=== PATIENT | female | born 1995 | race Caucasian/White ===

== ENCOUNTER 2016-07-04 16:36 | Outpatient (CLI) | payer OTHER ==
[~2016-07-04] VITALS: Ht 162.6 cm; Wt 96.4 kg
[~2016-07-04 16:36] MED LIST: ACET500C5 PO; D-ME473S18 PO
[2016-07-04 16:40] VITALS: Ht 162.6 cm; Wt 96.4 kg
[2016-07-04 16:41] VITALS: RESP 19
--- NOTE | 2016-07-04 17:01 | RADRPT ---
PROCEDURE: US OB biophysical profile. CLINICAL INDICATION: decreased movements TECHNIQUE: Multiple sonographic images of the pelvis were obtained. The images were reviewed on a PACS workstation. COMPARISON: No prior studies are available for comparison. FINDINGS: There is a single viable intrauterine gestation. Cardiac activity is present with 137 beats per min matt. There is a vertex presentation. The placenta is fundal. There is no evidence of placental abruption. There is a normal amount of amniotic fluid with an CONNIE = 12.3 cm. Biophysical profile: movement 2/2 tone 2/2. breathing 2/2 CONNIE 2/2 Total 10/23 RPTAT: AA . IMPRESSION: Normal biophysical profile. . .Michoacano Almanzar MD, MD Date Time Electronically viewed and signed by .Michoacano Almanzar MD, MD on 07/04/2016 17:01 .S/
--- NOTE | 2016-07-04 17:23 | QN ---
Documentation Comment 20 y/o female here for decreased FM at 37 weeks NST R BPP 10/23 will follow as outpatient URBAN HUNT MD Jul 04, 2016 17:23
--- NOTE | 2016-07-04 18:04 | TRIAGE ---
OB Triage Datetime Report Generated by CPN: 07/04/2016 18:04 Datetime: 07/04/2016 16:54 Assessment Type: Triage EGA: 37.1 Maternal Assessment Level of Consciousness: Fully Conscious DTR's/Clonus: DTRs 2+; No Clonus Headache: Denies Blurred Vision: No Respiratory Effort: Unlabored; Regular Rhythm; Equal Expansion Breath Sounds, Left: Clear and Equal Breath Sounds, Right: Clear and Equal Nausea/Vomiting: Denies RUQ Epigastric Pain: Denies Lower Extremities Edema: None Degree: None Upper Extremities Edema: None Degree: None Facial Edema: None Fall Risk Assessment History of Falling: (0) No Secondary Diagnosis: (0) No Ambulatory Aid: (0) Bedrest/Nurse Assist IV Therapy: (0) No Gait: (0) Normal/Bedrest/Immobile Mental Status: (0) Oriented to Own Ability Fall Score: 0 Fall Risk Score Definition: No Risk: No action required Datetime: 07/04/2016 16:52 Maternal Assessment Level of Consciousness: Fully Conscious DTR's/Clonus: DTRs 1+ Headache: Denies Blurred Vision: No Respiratory Effort: Unlabored Breath Sounds, Left: Clear and Equal Breath Sounds, Right: Clear and Equal Nausea/Vomiting: Denies RUQ Epigastric Pain: Denies Facial Edema: None Labor Evaluation Frequency: NONE Monitor Mode: External Resting Tone [place]: Relaxed Heart Rate FHR Baseline Rate: 135 Monitor Mode: External US Variability: Moderate 6-25 bpm Accelerations: 15X15 Decelerations: None Category: Category I Pain Assessment Pain Scale: 0 Pain Presence: None/Denies Pain Type: N/A Pain Goal: 3 Datetime: 07/04/2016 16:35 Time of Arrival: 07/04/2016 16:35 Arrived By: Ambulatory Arrived From: Home Chief Complaint: DFM Movement: Present Contractions: Denies/Absent Rupture of Membranes: Denies Vaginal Bleeding: None Vaginal Discharge: Denies Recent Sexual Intercouse: Denies Abdominal Trauma: Not Applicable Patient Complaints: Other Additional Patient Complaints: NONE Time Provider Notified: 07/04/2016 17:00 Provider Notified: JOCELYN Initial Plan: JOHN
== END 2016-07-04 17:23 | disposition home or self-care (01) ==
LOC: OBT 16:36 → L-D 16:37 → OBT 17:23
PROVIDERS: ATTEND Obstetrics & Gynecology
DX: O36.8130 Decreased fetal movements, third trimester, not applicable or unspecified (principal); Z3A.37 37 weeks gestation of pregnancy
CPT/HCPCS: 76818; Z7500; G0463

== ENCOUNTER 2016-07-25 17:52 | Inpatient (IN) | payer OTHER ==
[~2016-07-25] VITALS: Ht 162.6 cm; Wt 98.2 kg
[2016-07-25 18:05] VITALS: Ht 162.6 cm; Wt 98.2 kg
[2016-07-25] MEDS ORDERED: PREN-47 PO (18:17)
--- NOTE | 2016-07-25 18:46 | RADRPT ---
PROCEDURE: OB ultrasound for biophysical profile CLINICAL INDICATION: Biophysical profile. . TECHNIQUE: Multiple sonographic images of the pelvis were obtained. Transabdominal views are obta ined. COMPARISON: 07/06/2016 FINDINGS: Single intrauterine gestation. Presentation: Cephalic. Placenta: Fundal No evidence of placental abruption. No evidence of placenta previa. breathing movement = 2/2 tone = 2/2 motion = 2/2 CONNIE = 2/2 CONNIE = 6.7 cm, previously 9.6 cm heart rate: 132 beats per minute IMPRESSION: Single intrauterine gestation. Biophysical profile 10/23 Low normal amniotic fluid index. RPTAT: AADD .Nestor Smith MD, MD Date Time Electronically viewed and signed by .Nestor Smith MD, on 07/25/2016 18:45 .B/
[2016-07-25] MEDS ORDERED: CARBOPROST 250 MCG INJ IM PRN (19:00)
[2016-07-25] MEDS ORDERED: MINERAL OIL LIGHT 10 ML VIAL TOP PRN (19:00)
[2016-07-25] MEDS ORDERED: OXYTOCIN 30 UNITS/LR 500 ML IV SCH ×3 (19:00→21:00)
[2016-07-25] MEDS ORDERED: MISOPROSTOL 200 MCG TAB PR PRN (19:00)
[2016-07-25] MEDS ORDERED: METHYLERGONOVINE 0.2 MG INJ IM PRN (19:00)
[2016-07-25] MEDS ORDERED: IBUPROFEN 600 MG TAB PO PRN (19:00)
[2016-07-25] MEDS ORDERED: LACTATED RINGER'S 1,000 ML IV PRN (19:00)
[2016-07-25] MEDS ORDERED: BUTORPHANOL 2 MG INJ IV PRN (19:00)
[2016-07-25] MEDS ORDERED: DINOPROSTONE 10 MG VAG SUPP VAG ONE (19:00)
[2016-07-25] MEDS ORDERED: LIDOCAINE 1% (MPF) 30 ML INJ INJ PRN (19:00)
[2016-07-25] MEDS ORDERED: OXYTOCIN 30 UNITS/LR 500 ML IV PRN (19:00)
--- NOTE | 2016-07-25 19:01 | TRIAGE ---
OB Triage Datetime Report Generated by CPN: 07/25/2016 19:01 Datetime: 07/25/2016 18:43 Labor Evaluation Frequency: x1 contraction noted in last hour Monitor Mode: External Duration (sec)2399: 80 Quality: Mild Pattern: Normal: <= 5 Contractions in 10 Minutes Resting Tone [place]: Relaxed Heart Rate FHR Baseline Rate: 130 Monitor Mode: External US FHR Baseline Changes: No Baseline Change Variability: Moderate 6-25 bpm Accelerations: 15X15 Decelerations: None Category: Category I Pain Assessment Pain Presence: None/Denies Datetime: 07/25/2016 18:10 Assessment Type: Triage Maternal Assessment Level of Consciousness: Fully Conscious DTR's/Clonus: DTRs 2+; No Clonus Headache: Denies Blurred Vision: No Respiratory Effort: Unlabored; Regular Rhythm; Equal Expansion Breath Sounds, Left: Clear and Equal Breath Sounds, Right: Clear and Equal Nausea/Vomiting: Denies RUQ Epigastric Pain: Denies Lower Extremities Edema: Bilateral Lower Extremities Degree: 1+ Upper Extremities Edema: Bilateral Upper Extremities Degree: 1+ Facial Edema: None Temperature Route: Oral Fall Risk Assessment History of Falling: (0) No Secondary Diagnosis: (0) No Ambulatory Aid: (0) Bedrest/Nurse Assist IV Therapy: (0) No Gait: (0) Normal/Bedrest/Immobile Mental Status: (0) Oriented to Own Ability Fall Score: 0 Fall Risk Score Definition: No Risk: No action required Datetime: 07/25/2016 18:06 Time of Arrival: 07/25/2016 17:50 EGA: 40.1 Arrived By: Ambulatory Arrived From: Dr. Bess Chief Complaint: Follow up for decreased movement, Movement: Present Contractions: Denies/Absent Rupture of Membranes: Denies Vaginal Bleeding: None Vaginal Discharge: Denies Recent Sexual Intercouse: Denies Abdominal Trauma: Not Applicable Patient Complaints: None Time Provider Notified: 07/25/2016 18:53 Provider Notified: Marvin Initial Plan: NST, BPP/CONNIE Datetime: 07/25/2016 18:02 Stage of : OB Triage Datetime: 07/04/2016 16:54 EGA: 37.1 Fall Score: 0 Fall Risk Score Definition: No Risk: No action required
[2016-07-25 19:54] LABS: ADD SCAN DIFF NO
[2016-07-25 19:56] LABS: BASOPHIL # 0.1 10^3/ul (0.0-0.1); BASOPHILS % 0.3 % (0.0-2.0); EOSINOPHILS # 0.1 10^3/ul (0.0-0.5); EOSINOPHILS % 0.3 % (0.0-7.0); HEMATOCRIT 34.6 % (37.0-47.0); HEMOGLOBIN 11.1 g/dl (12.0-16.0); LYMPHOCYTES # 1.5 10^3/ul (0.8-2.9); LYMPHOCYTES % 10.1 % (18.0-55.0); MEAN CORPUSCULAR HEMOGLOBIN 27.1 pg (29.0-33.0); MEAN CORPUSCULAR HGB CONC 32.1 g/dl (32.0-37.0); MEAN CORPUSCULAR VOLUME 84.4 fl (72.0-104.0); MEAN PLATELET VOLUME 10.9 fl (7.4-10.4); MONOCYTE # 0.9 10^3/ul (0.3-0.9); NEUTROPHIL # 12.5 10^3/ul (1.6-7.5); NEUTROPHILS % 81.9 % (30.0-74.0); PLATELET COUNT 313 10^3/UL (140-415); RED CELL DISTRIBUTION WIDTH 15.2 % (11.5-14.5); WHITE BLOOD COUNT 15.3 10^3/ul (4.8-10.8)
[2016-07-25 20:18] LABS: INR 0.93; PROTIME 12.5 Sec (12.2-14.2)
[2016-07-25 20:19] LABS: PARTIAL THROMBOPLASTIN TIME 27.2 Sec (25.0-35.0)
[2016-07-25] MEDS: LACTATED RINGER'S 1,000 ML IV SCH (21:12)
[2016-07-26] MEDS: LACTATED RINGER'S 1,000 ML IV SCH ×2 (02:19→08:08)
[2016-07-26] MEDS ORDERED: FENTAnyl 2MCG/ML-ROPIV 0.2% 100 ML ONE (05:11)
[2016-07-26] MEDS ORDERED: ZOLPIDEM 5 MG TAB PO PRN ×2 (06:00→18:30)
[2016-07-26] MEDS ORDERED: ONDANSETRON 4 MG INJ IV PRN (06:00)
[2016-07-26] MEDS ORDERED: NALOXONE (0.4 MG/ML) INJ IV PRN (06:00)
[2016-07-26] MEDS ORDERED: DIPHENHYDRAMINE 50 MG INJ IV PRN (06:00)
[2016-07-26] MEDS ORDERED: HYDROmorphONE 1 MG/ML SYG IV PRN ×2 (06:00)
[2016-07-26] MEDS: FENTAnyl 2MCG/ML-ROPIV 0.2% 100 ML BAG EPI SCH ×2 (08:08→10:19)
[2016-07-26 08:41] VITALS: BP 129/93; PULSE 95
[2016-07-26] MEDS: ACETAMINOPHEN 325 MG TAB PO PRN ×2 (12:21→16:08)
[2016-07-26] MEDS ORDERED: GENTAMICIN 120 MG/NS (PMX) 100 ML IVPB SCH (12:30)
[2016-07-26] MEDS ORDERED: AMPICILLIN 2 GM/NS (PMX) 100 ML IV ONE (12:30)
[2016-07-26] MEDS ORDERED: AMPICILLIN 1 GM/NS (PMX) 50 ML IV SCH (16:30)
--- NOTE | 2016-07-26 17:18 | LDN ---
Date/Time of Note Date/Time of Note DATE: 07/26/16 TIME: 17:14 Delivery Summary of a viable over intact perineum Weeks of Gestation 40+ Placenta Delivered: Spontaneously, Intact & Complete Meconium: none Episiotomy: No Laceration repair: 2nd degree perineal laceration was repaired in layers(done by De. Gastelum) Anesthesia type: Epidural Estimated blood loss: 300 Sponge & Needle done & correct: Yes All needle counts correct: Yes Any foreign bodies felt in the: No Problems: Infant Delivery Information Sex Infant Sex: male Apgars 1 Minute: 7 5 Minute: 8 Suctioning Nose & mouth suctioned at luis: Yes Delee suction performed: No Umbilical Cord Umbilical cord with: 3 Vessels Cord presentations: no nuchal cord Nuchal cord present X: 350 Cord Blood was obtained: Yes Mother & Baby Disposition Disposition Mom & Baby to Maternity; Good: No Mom transferred to: Other (maternity) Baby to NICU: Yes (for retractions) URBAN HUNT MD July 26, 2016 17:18
--- NOTE | 2016-07-26 17:36 | HP ---
Date/Time of Note Date/Time of Note DATE: 07/26/16 TIME: 17:33 OB - History Hx of Present Free Text/Dictation admitted for induction at 40 + weeks because of low CONNIE Last Menstrual Period: Oct 05, 2015 Estimated Due Date: July 24, 2016 : 1 Para: 0 Care: Good Care Ultrasounds: Normal mid trimester US Obstetrical Complications: None Medical Complications: None Past Family/Social History * Past Medical, Surgical, Family and Obstetric Histories reviewed from chart. Blood Type: O+ Rubella: immune RPR/VDRL: Negative GBS Status: Negative HBsAG: Negative OB Admission Exam Vital Signs Vital Signs Vital Signs Date Time Temp Pulse Resp B/P Pulse Ox O2 Delivery O2 Flow Rate FiO2 07/26/16 08:41 98.9 95 129/93 Physical Exam HEENT: WNL Heart: Rhythm Normal Lungs: Clear, Equal Abdomen: WNL Extremities: Normal Reflexes: Normal Cervical Dilatation: 3cm Effacement: 50% Station: -3 Membranes: Intact Heart Rate: 120's Accelerations: Accelerations Present Decelerations: No Decelerations Varibility: Moderate Contractions on Admission: None Last 72 hours Lab Results CBC & BMP 07/25/16 19:30 OB Assessment/Plan Reason for admission: induction of labor Other Assessment: term gestation decreased amniotic fluid Induction Method: per Pitocin Protocol URBAN HUNT MD July 26, 2016 17:36
[2016-07-26 18:30] VITALS: BP 138/77
[2016-07-26] MEDS ORDERED: MISOPROSTOL 200 MCG TAB PR PRN (18:30)
[2016-07-26] MEDS ORDERED: METHYLERGONOVINE 0.2 MG INJ IM PRN (18:30)
[2016-07-26] MEDS ORDERED: LANOLIN 7 GM TUBE TOP PRN (18:30)
[2016-07-26] MEDS ORDERED: ACETAMINOPHEN/CODEINE #3 TAB PO PRN ×2 (18:30)
[2016-07-26] MEDS ORDERED: WITCH HAZEL/GLYCERIN PAD PR PRN (18:30)
[2016-07-26] MEDS ORDERED: BENZOCAINE 20% 56 ML SPRAY TOP PRN (18:30)
[2016-07-26] MEDS ORDERED: DIBUCAINE 1% 30 GM OINT PR PRN (18:30)
[2016-07-26] MEDS ORDERED: OXYTOCIN 30 UNITS/LR 500 ML IV PRN (18:30)
[2016-07-26] MEDS ORDERED: CARBOPROST 250 MCG INJ IM PRN (18:30)
[2016-07-26] MEDS: AMPICILLIN/SULB 3 GM/NS (PMX) 100 ML IVPB SCH (19:40)
[2016-07-26 19:45] VITALS: BP 129/73
[2016-07-26] MEDS ORDERED: GENTAMICIN 80 MG/NS (PMX) 50 ML IVPB SCH (21:00)
[2016-07-26] MEDS: MAGNESIUM HYDROXIDE 30ML CUP PO SCH (21:01)
[2016-07-26] MEDS: SENNA/DOCUSATE NA (8.6MG/50MG) TAB PO SCH (21:01)
[2016-07-26] MEDS: LACTATED RINGER'S 1,000 ML IV* SCH (21:01)
[2016-07-26] MEDS: IBUPROFEN 600 MG TAB PO SCH (23:43)
[2016-07-26 23:58] VITALS: BP 125/62
[2016-07-27] MEDS: AMPICILLIN/SULB 3 GM/NS (PMX) 100 ML IVPB SCH ×4 (01:24→18:16)
[2016-07-27] MEDS: LACTATED RINGER'S 1,000 ML IV* SCH ×3 (02:18→19:08)
[2016-07-27 04:00] VITALS: BP 108/53
[2016-07-27] MEDS: IBUPROFEN 600 MG TAB PO SCH ×3 (05:56→18:16)
[2016-07-27 08:05] LABS: ADD SCAN DIFF NO
[2016-07-27 08:20] LABS: ABNORMAL IP MESSAGE 1; BASOPHILS % 0.2 % (0.0-2.0); EOSINOPHILS # 0.1 10^3/ul (0.0-0.5); EOSINOPHILS % 0.3 % (0.0-7.0); HEMATOCRIT 24.1 % (37.0-47.0); HEMOGLOBIN 7.6 g/dl (12.0-16.0); LYMPHOCYTES # 2.8 10^3/ul (0.8-2.9); LYMPHOCYTES % 11.7 % (18.0-55.0); MEAN CORPUSCULAR HEMOGLOBIN 27.5 pg (29.0-33.0); MEAN CORPUSCULAR HGB CONC 31.5 g/dl (32.0-37.0); MEAN CORPUSCULAR VOLUME 87.3 fl (72.0-104.0); MEAN PLATELET VOLUME 10.9 fl (7.4-10.4); MONOCYTE # 1.7 10^3/ul (0.3-0.9); MONOCYTES % 6.8 % (0.0-13.0); NEUTROPHIL # 19.3 10^3/ul (1.6-7.5); NEUTROPHILS % 79.7 % (30.0-74.0); PLATELET COUNT 215 10^3/UL (140-415); RED BLOOD COUNT 2.76 10^6/ul (4.20-5.40); RED CELL DISTRIBUTION WIDTH 15.8 % (11.5-14.5); WHITE BLOOD COUNT 24.3 10^3/ul (4.8-10.8)
[2016-07-27 08:30] VITALS: BP 122/74
[2016-07-27] MEDS: SENNA/DOCUSATE NA (8.6MG/50MG) TAB PO SCH ×2 (08:58→21:49)
[2016-07-27] MEDS: MAGNESIUM HYDROXIDE 30ML CUP PO SCH ×2 (08:59→21:49)
[2016-07-27 12:20] VITALS: BP 121/84
--- NOTE | 2016-07-27 15:35 | DS ---
Date/Time of Note Date/Time of Note home next day DATE: 07/27/16 TIME: 15:33 Obstetrical Discharge Record Final Diagnosis Final Diagnosis: Term delivered Other Final Diagnosis S/P vaginal delivery Vaginal Delivery Obstetrical Delivery: Spontaneous, Laceration, Repaired Complications Augmentation: Yes Condition on Discharge Physical Assessment Last Vitals: see nurses note Voiding: Yes Bowel Movement: Yes Breast: Soft, non-tender, Filling Fundus: Firm Abdomen and Incision: soft BS+ Episiotomy: NA perineum:healing Calf Tenderness: No Patient Condition: Good URBAN HUNT MD July 27, 2016 15:35
--- NOTE | 2016-07-27 15:36 | PD.PPDC ---
INTERNAL GRINDER SET UP OPERATOR Discharge Instruction Provider Information Physician Information 20 y/o female had vaginal delivery Diagnosis Final Diagnosis: S/P vaginal delivery Condition Patient Condition: Good Diet Diet: Resume Regular Diet Activity/Restrictions Activity: Normal Activity May Shower Restrictions: Nothing in the Vagina Return to Work or School: Sep 10, 2016 Follow-up Follow-up with Physician: 4, Week/Weeks (in clinic) Return to clinic for OB Instructions: Breast Tenderness Depression URBAN HUNT MD July 27, 2016 15:36
[2016-07-27] MEDS ORDERED: IBUP-1542 PO (15:37)
[2016-07-27 16:30] VITALS: BP 121/84
[2016-07-27 20:00] VITALS: BP 140/77
[2016-07-28] MEDS: IBUPROFEN 600 MG TAB PO SCH ×4 (00:06→17:13)
[2016-07-28] MEDS: AMPICILLIN/SULB 3 GM/NS (PMX) 100 ML IVPB SCH ×4 (00:06→17:13)
[2016-07-28] MEDS: LACTATED RINGER'S 1,000 ML IV* SCH ×2 (02:18→10:08)
[2016-07-28 04:51] VITALS: BP 123/75
[2016-07-28 07:58] LABS: ADD SCAN DIFF NO
[2016-07-28 08:02] LABS: BASOPHIL # 0.1 10^3/ul (0.0-0.1); BASOPHILS % 0.3 % (0.0-2.0); EOSINOPHILS # 0.2 10^3/ul (0.0-0.5); EOSINOPHILS % 1.3 % (0.0-7.0); HEMATOCRIT 24.4 % (37.0-47.0); HEMOGLOBIN 7.7 g/dl (12.0-16.0); LYMPHOCYTES # 2.8 10^3/ul (0.8-2.9); LYMPHOCYTES % 15.1 % (18.0-55.0); MEAN CORPUSCULAR HEMOGLOBIN 27.8 pg (29.0-33.0); MEAN CORPUSCULAR HGB CONC 31.6 g/dl (32.0-37.0); MEAN CORPUSCULAR VOLUME 88.1 fl (72.0-104.0); MONOCYTE # 1.1 10^3/ul (0.3-0.9); MONOCYTES % 5.9 % (0.0-13.0); NEUTROPHIL # 13.8 10^3/ul (1.6-7.5); NEUTROPHILS % 74.8 % (30.0-74.0); PLATELET COUNT 237 10^3/UL (140-415); RED BLOOD COUNT 2.77 10^6/ul (4.20-5.40); RED CELL DISTRIBUTION WIDTH 15.5 % (11.5-14.5); WHITE BLOOD COUNT 18.4 10^3/ul (4.8-10.8)
[2016-07-28 08:30] VITALS: BP 115/67
[2016-07-28] MEDS ORDERED: VARICELLA VACCINE LIVE/PF 1,350 UNIT/0.5 ML ML SC* ONE (09:00)
[2016-07-28] MEDS: SENNA/DOCUSATE NA (8.6MG/50MG) TAB PO SCH (09:00)
[2016-07-28] MEDS: MAGNESIUM HYDROXIDE 30ML CUP PO SCH (09:00)
[2016-07-28] MEDS ORDERED: DIPHTH/TET/ACEL PERTUSS (ADULT) 0.5 ML VIAL IM* ONE (09:00)
[2016-07-28] MEDS ORDERED: MEASLES,MUMPS,RUBELLA VACCINE INJ SC* ONE (09:00)
[2016-07-28 16:30] VITALS: BP 125/79
== END 2016-07-28 18:24 | disposition home or self-care (01) | DRG 775 ==
LOC: OBT 17:52 → L-D 17:53 → OBT 18:55 → PP1 07-26 18:27
PROVIDERS: ADMIT Obstetrics & Gynecology; ATTEND Obstetrics & Gynecology
PROC: 10E0XZZ Delivery of Products of Conception, External Approach (ICD-10-PCS; principal; 2016-07-26)
PROC: 0KQM0ZZ Repair Perineum Muscle, Open Approach (ICD-10-PCS; 2016-07-26)
DX: O70.1 Second degree perineal laceration during delivery (principal); Z37.0 Single live birth; O48.0 Post-term pregnancy; Z3A.40 40 weeks gestation of pregnancy
CPT/HCPCS: 62319; 76818; 85025; 85610; 85730; 86592; 86900; 86901; 87040; 87086; 90715; 90716; 99464; G0463; J0290; J0295; J1580; J2590; J3010; J7120

== ENCOUNTER 2018-07-10 22:16 | Inpatient (IN) | payer MEDICAID ==
[~2018-07-10] VITALS: Ht 162.6 cm; Wt 101.7 kg
[~2018-07-10 22:16] MED LIST changes: -ACET500C5 PO; -D-ME473S18 PO; +IBUP-1542 PO; +PREN-47 PO
[2018-07-10] MEDS ORDERED: LACTATED RINGER'S 1,000 ML IV SCH (23:20)
[2018-07-10] MEDS ORDERED: IBUPROFEN 600 MG TAB PO PRN (23:30)
[2018-07-10] MEDS ORDERED: LIDOCAINE 1% (MPF) 30 ML INJ INJ PRN (23:30)
[2018-07-10] MEDS ORDERED: BUTORPHANOL 2 MG INJ IV PRN (23:30)
[2018-07-10] MEDS ORDERED: OXYTOCIN 30 UNITS/LR 500 ML IV SCH (23:30)
[2018-07-10] MEDS ORDERED: AMPICILLIN 2 GM/NS (PMX) 100 ML IV ONE (23:30)
[2018-07-10] MEDS ORDERED: OXYTOCIN 30 UNITS/LR 500 ML IV PRN (23:30)
[2018-07-10] MEDS ORDERED: METHYLERGONOVINE 0.2 MG INJ IM PRN (23:30)
[2018-07-10] MEDS ORDERED: CARBOPROST 250 MCG INJ IM PRN (23:30)
[2018-07-10] MEDS ORDERED: MISOPROSTOL 200 MCG TAB PR PRN (23:30)
--- NOTE | 2018-07-11 00:36 | HP ---
Date/Time of Note Date/Time of Note DATE: 07/11/18 TIME: 00:24 OB - History Hx of Present Free Text/Dictation 22 y.o at 40w for NST /BPP EFW with intact membrane with UC's Initial VE /-2 CAT I tracing CONNIE 8.9 EFW 3759gm had treatment for UTI 3days ago x2 UTI GBS positive admitted for expectant management Chief Complaint: uc's Estimated Due Date: Jul 10, 2018 : 2 Para: 1 Spontaneous : 0 Therapeutic : 0 Care: Good Care Ultrasounds: Normal mid trimester US Obstetrical Complications: None Medical Complications: Gastrointestinal Other Concerns: pap LSIL Past Family/Social History * Past Medical, Surgical, Family and Obstetric Histories reviewed from chart. Blood Type: O+ Rubella: immune RPR/VDRL: Negative GBS Status: Positive HBsAG: Negative OB Admission Exam Physical Exam HEENT: WNL Heart: Rhythm Normal Lungs: Clear, Equal Abdomen: WNL Extremities: Normal Reflexes: Normal Cervical Dilatation: 5cm Effacement: Other (90%) Station: -2 Membranes: Intact Amniotic Fluid: Unevaluable Heart Rate: 140's Accelerations: Accelerations Present Decelerations: No Decelerations Varibility: Moderate Contractions on Admission: < 5 Minutes Apart Intensity: Firm Last 72 hours Lab Results CBC & BMP 07/10/18 23:47 OB Assessment/Plan Reason for admission: active labor Other Assessment: IUP 40w1d Plan: Expectant Management Induction Method: other (ampicillin for GBS positive status) REYNA GEORGE MD Jul 11, 2018 00:34
[2018-07-11] MEDS ORDERED: FENTAnyl 2MCG/ML-ROPIV 0.2% 100 ML ONE (01:13)
[2018-07-11] MEDS ORDERED: FENTAnyl 50 MCG/ML VIAL ONE (01:14)
[2018-07-11 01:53] VITALS: Ht 162.6 cm; Wt 101.7 kg
[2018-07-11] MEDS: OXYTOCIN 30 UNITS/LR 500 ML IV SCH ×2 (03:21→06:58)
[2018-07-11] MEDS ORDERED: AMPICILLIN 1 GM/NS (PMX) 50 ML IV SCH (03:30)
--- NOTE | 2018-07-11 03:50 | LDN ---
Date/Time of Note Date/Time of Note DATE: 07/11/18 TIME: 03:45 Delivery Summary of normal male with nuchal cord (suspenders like) Weeks of Gestation 40w1d Placenta Delivered: Spontaneously, Intact & Complete Meconium: none Episiotomy: No Perineal laceration: 1 Laceration repair: 000ch gut Anesthesia type: Local (epidural given but non functional) Estimated blood loss: 200 Sponge & Needle done & correct: Yes All needle counts correct: Yes Any foreign bodies felt in the: No Delivery Information Sex Sex: male Apgars 1 Minute: 8 5 Minute: 9 Suctioning Nose & mouth suctioned at luis: Yes Delee suction performed: No Umbilical Cord Umbilical cord with: 3 Vessels Cord presentations: nuchal cord Nuchal cord present X: 1 Cord Blood was obtained: Yes Mother & Baby Disposition Disposition Mom & Baby to Maternity; Good: Yes Mom transferred to: Other Baby to NICU: No () REYNA GEORGE MD Jul 11, 2018 03:50
[2018-07-11 05:30] VITALS: BP 130/79; PULSE 70; RESP 18
[2018-07-11] MEDS ORDERED: WITCH HAZEL/GLYCERIN PAD PR PRN (05:30)
[2018-07-11] MEDS ORDERED: METHYLERGONOVINE 0.2 MG INJ IM PRN (05:30)
[2018-07-11] MEDS ORDERED: LANOLIN HPA 1 PKT TOP PRN (05:30)
[2018-07-11] MEDS ORDERED: MISOPROSTOL 200 MCG TAB PR PRN (05:30)
[2018-07-11] MEDS ORDERED: ZOLPIDEM 5 MG TAB PO PRN (05:30)
[2018-07-11] MEDS ORDERED: BENZOCAINE 20% 56 ML SPRAY TOP PRN (05:30)
[2018-07-11] MEDS ORDERED: OXYTOCIN 30 UNITS/LR 500 ML IV PRN (05:30)
[2018-07-11] MEDS ORDERED: OXYCODONE/ASPIRIN (4.88/325) TAB PO PRN ×2 (05:30)
[2018-07-11] MEDS ORDERED: CARBOPROST 250 MCG INJ IM PRN (05:30)
[2018-07-11] MEDS: IBUPROFEN 600 MG TAB PO SCH ×3 (06:00→17:46)
[2018-07-11 08:00] VITALS: BP 118/58; PULSE 94; RESP 18
[2018-07-11] MEDS: SENNA/DOCUSATE NA (8.6MG/50MG) TAB PO SCH ×2 (10:25→21:25)
--- NOTE | 2018-07-11 10:37 | PREAC ---
Date/Time of Note Date/Time of Note DATE: 07/11/18 TIME: 10:36 Anesthesia Eval and Record Evaluation Time Pre-Procedure Interview DATE: 07/11/18 TIME: 10:36 Age 22 Sex female NPO: 8 hrs Preoperative diagnosis labor pain Planned procedure epidural Past Medical History Past Medical History: None Surgery & Anesthesia Issues No known issue Meds Anticoagulation: No Beta Roro within 24 hr: No Reason Beta Roro not given: Pt. not on B-Roro Active Scripts Ibuprofen* (Ibuprofen*) 600 Mg Tablet, 600 MG PO Q6, #30 TAB 0 Refills Prov:URBAN HUNT MD 07/27/16 Reported Medications [id number]-Gewdb Acid (Prenata Chewable) 1 Each Tab.chew, 1 TAB PO DAILY, TAB.CHEW 07/25/16 Current Medications Oxytocin/Lactated Ringer's 500 ml @ 500 mls/hr ONCE POST IV Last administered on 07/11/18at 06:58; Admin Dose 500 MLS/HR; Start 07/10/18 at 23:30 Ibuprofen (Motrin) 600 mg Q6 PO ; Start 07/11/18 at 06:00 Oxycodone/Aspirin (Percodan) 1 tab Q3H PRN PO .PAIN 1-5; Start 07/11/18 at 05:30 Oxycodone/Aspirin (Percodan) 2 tab Q3H PRN PO .PAIN 6-10; Start 07/11/18 at 05:30 Zolpidem Tartrate (Ambien) 5 mg QHS PRN PO .INSOMNIA; Start 07/11/18 at 05:30 Senna/Docusate Sodium (Senokot-S) 1 tab BID PO Last administered on 07/11/18at 10:25; Admin Dose 1 TAB; Start 07/11/18 at 09:00 Witch Selin/ Glycerin (Tucks Pads) 1 pad BEDSIDE MEDICATION PRN CA .HEMORRHOID/EPISIOTOMY PAIN Last administered on 07/11/18at 06:57; Admin Dose 1 PAD; Start 07/11/18 at 05:30 Benzocaine (Dermoplast Crivitz) 1 spray BEDSIDE MEDICATION PRN TOP .HEMMORHOID/EPISIOTOMY PAIN Last administered on 07/11/18at 06:57; Admin Dose 1 SPRAY; Start 07/11/18 at 05:30 Lanolin (Lanolin Hpa) 1 applic BEDSIDE MEDICATION PRN TOP .NIPPLES; Start 07/11/18 at 05:30 Diphtheria/ Tetanus/Acell Pertussis (Adacel) 0.5 ml ONCE ONCE IM* ; Start 07/13/18 at 09:00; Stop 07/13/18 at 09:01 Oxytocin/Lactated Ringer's 500 ml @ 0 mls/hr ONCE PRN IV .VAGINAL BLEEDING; Start 07/11/18 at 05:30 Methylergonovine Maleate (Methergine) 0.2 mg ONCE PRN IM .VAGINAL BLEEDING; Start 07/11/18 at 05:30 Carboprost Tromethamine (Hemabate) 250 mcg ONCE PRN IM .VAGINAL BLEEDING; Start 07/11/18 at 05:30 Misoprostol (Cytotec) 1,000 mcg ONCE PRN CA .VAGINAL BLEEDING; Start 07/11/18 at 05:30 Meds reviewed: Yes Allergies Coded Allergies: No Known Drug Allergies (Verified Allergy, Unknown, 02/10/16) Allergies Reviewed: Yes Labs/Studies Labs Reviewed: Reviewed by anesthesiologist Result Diagram: 07/10/18 2347 Laboratory Tests 07/10/18 23:47 Blood Bank Test 07/10/18 23:47 Antibody Screen NEGATIVE Blood Type O POSITIVE Rh Immune Globulin Candidate NO test: N/A Pre-procedure Exam Last vitals Vital Signs Date Temp Pulse Resp B/P (MAP) Pulse Ox O2 O2 Flow FiO2 Time Delivery Rate 07/11/18 99.0 94 18 118/58 Room Air 08:00 (78) Airway: Adequate mouth opening, Adequate thyromental dist Mallampati: Mallampati III Teeth: Normal Lung: Normal Heart: Normal ASA Physical Status ASA physical status: 2 Emergency: None Pre-operative Attestations Prior to commencing anesthesia and surgery, the patient was re-evaluated, there was verification of: *The patient's identity *The results of appropriate recent lab work and preoperative vital signs *The above evaluation not changing prior to induction *Anesthetic plan, risk benefits, alternative and complications discussed with patient/family; questions answered; patient/family understands, accepts and wishes to proceed. JULIA ALCANTAR DO Jul 11, 2018 10:37
--- NOTE | 2018-07-11 10:38 | PAC ---
Date/Time of Note Date/Time of Note DATE: 07/11/18 TIME: 10:37 Post-Anesthesia Notes Post-Anesthesia Note Last documented vital signs Vital Signs Date Temp Pulse Resp B/P (MAP) Pulse Ox O2 O2 Flow FiO2 Time Delivery Rate 07/11/18 99.0 94 18 118/58 Room Air 08:00 (78) Activity: WNL Respiratory function: WNL Cardiovascular function: WNL Mental status: Baseline Pain reasonably controlled: Yes Hydration appropriate: Yes Nausea/Vomiting absent: Yes JULIA ALCANTAR DO Jul 11, 2018 10:38
[2018-07-11 16:00] VITALS: BP 122/67; PULSE 84; RESP 18
[2018-07-11] MEDS: CEPHALEXIN 500 MG CAP PO SCH ×2 (17:45→23:49)
[2018-07-11 20:00] VITALS: BP 111/60; PULSE 80; RESP 18
[2018-07-12] MEDS: IBUPROFEN 600 MG TAB PO SCH ×4 (04:19→18:10)
[2018-07-12 04:20] VITALS: BP 118/60; PULSE 68; RESP 18
[2018-07-12] MEDS: CEPHALEXIN 500 MG CAP PO SCH ×3 (05:57→18:09)
[2018-07-12 08:20] VITALS: BP 112/61; PULSE 73; RESP 18
[2018-07-12] MEDS: SENNA/DOCUSATE NA (8.6MG/50MG) TAB PO SCH ×2 (09:29→22:11)
--- NOTE | 2018-07-12 11:08 | DS ---
Date/Time of Note Date/Time of Note Home today or next day DATE: 07/12/18 TIME: 11:07 Obstetrical Discharge Record Final Diagnosis Final Diagnosis: Term delivered Other Final Diagnosis Status post vaginal delivery Vaginal Delivery Obstetrical Delivery: Spontaneous, Laceration, Repaired Condition on Discharge Physical Assessment Last Vitals: See nurse's notes Voiding: Yes Bowel Movement: Yes Breast: Soft, non-tender, Filling Fundus: Firm Abdomen and Incision: Abdomen is soft with firm fundus Episiotomy: Perineum is healing well and appears clean Calf Tenderness: No Patient Condition: Good URBAN HUNT MD Jul 12, 2018 11:08
--- NOTE | 2018-07-12 11:09 | PD.PPDC ---
DIETETIC AIDE Discharge Instruction Provider Information Physician Information 22-year-old female had vaginal delivery Diagnosis [id number] Final Diagnosis: Ctrjx2c Status post vaginal delivery Condition [id number] Patient Condition: Ckwza7x Good Diet [id number] Diet: Xqyxb2l Resume Regular Diet Activity/Restrictions Skixy2Px Activity: Pwzup4s Normal Activity May Shower [id number] Restrictions: Wsmzf4q Nothing in the Vagina [id number] Return to Work or School: Imuzf3y Sep 01, 2018 Follow-up Follow-up with Physician: 2, 4, Week/Weeks (In clinic) Return to clinic for Zkhzi7Mg OB Instructions: Uirxs9w Breast Tenderness Depression Comment: Pelvic rest for 6 weeks URBAN HUNT MD Jul 12, 2018 11:09
[2018-07-12] MEDS ORDERED: IBUP-1542 PO (11:10)
[2018-07-12 16:00] VITALS: BP 127/65; PULSE 85; RESP 18
[2018-07-12 20:00] VITALS: BP 112/66; PULSE 70; RESP 20
[2018-07-13] MEDS: CEPHALEXIN 500 MG CAP PO SCH ×3 (00:13→12:43)
[2018-07-13] MEDS: IBUPROFEN 600 MG TAB PO SCH ×3 (00:14→12:43)
[2018-07-13 04:04] VITALS: BP 120/64; PULSE 74; RESP 20
[2018-07-13 07:30] VITALS: BP 115/65; PULSE 78; RESP 16
[2018-07-13] MEDS ORDERED: DIPHTH/TET/ACEL PERTUSS (ADULT) 0.5 ML VIAL IM* ONE (09:00)
[2018-07-13] MEDS: SENNA/DOCUSATE NA (8.6MG/50MG) TAB PO SCH (11:19)
--- NOTE | 2018-07-14 16:00 | DELSUM ---
Delivery Summary A-C Datetime Report Generated by CPN: 07/14/2018 15:59 DELIVERY PERSONNEL Aligner Typewriter: Guerrier, Maggy MATERNAL INFORMATION Delivery Anesthesia: Epidural Medications in Delivery: 30 UNITS PITOCIN Delivery QBL (ml): 200 Placenta Cultured: No Maternal Complications: None LABOR SUMMARY EDC: 07/10/2018 00:00 No. Babies in Womb: 1 Attempted: No Labor Anesthesia: Epidural LABOR INFORMATION Reason for Induction: Not Applicable Onset of Labor: 07/11/2018 11:00 Complete Dilatation: 07/11/2018 02:34 Oxytocin: N/A Group B Beta Strep: Positive Antibiotics # of Doses: 1 Steroids Given: None Reason Steroids Not Administered: Not Applicable MEMBRANES Membranes Rupture Method: Spontaneous Rupture of Membranes: 07/11/2018 02:39 Length of Rupture (hr): 0.15 Amniotic Fluid Color: Light Meconium Amniotic Fluid Amount: Moderate Amniotic Fluid Odor: None STAGES OF LABOR Stage 1 hr: -8 Stage 1 min: -26 Stage 2 hr: 0 Stage 2 min: 14 Stage 3 hr: 0 Stage 3 min: 5 Total Time in Labor hr: -8 Total Time in Labor min: -7 VAGINAL DELIVERY Episiotomy: None Laceration Extension: First Degree Laceration Type: Perineal Laceration Repair: Yes Initial Vag Sponge Count: 10 Final Vag Sponge Count: 10 Initial Vag Sharps Count: 1+1 Final Vag Sharps Count: 2 Sponge Count Correct: Yes; Vaginal Sweep Performed Sharps Count Correct: Yes BABY A INFORMATION Delivery Date/Time: 07/11/2018 02:48 Method of Delivery: Vaginal Born in Route : No : N/A Forceps: N/A Vacuum Extraction: N/A Shoulder Dystocia : N/A SHOULDER DYSTOCIA BABY A Infant Delivery Date/Time: 07/11/2018 02:48 PRESENTATION/POSITION BABY A Presentation: Cephalic Cephalic Presentation: Vertex Breech Presentation: N/A PLACENTA INFORMATION BABY A Placenta Delivery Time : 07/11/2018 02:53 Placenta Method of Delivery: Expressed Placenta Status: Delivered SCORES BABY A Heart Rate 1 min: >100 bpm Resp Effort 1 min: Good Cry Reflex Irritability 1 min: Cough/Sneeze/Pulls Away Muscle Tone 1 min: Active Motion Color 1 min: Blue/Pale Resuscitation Effort 1 min: Tactile Stimulation SCORE 1 MIN: 8 Heart Rate 5 min: >100 bpm Resp Effort 5 min: Good Cry Reflex Irritability 5 min: Cough/Sneeze/Pulls Away Muscle Tone 5 min: Active Motion Color 5 min: Body [place], Extremit Blue Resuscitation Effort 5 min: Tactile Stimulation SCORE 5 MIN: 9 INFANT INFORMATION BABY A Gestational Age at Delivery: 40.1 Gestational Status: Full Term- 39- 40.6 Weeks Outcome : Liveborn Infant Condition : Stable Sex: Male IDENTIFICATION/MEDS BABY A ID Band Number: [id number] ID Band Location: Right Leg; Left Arm Sensor Applied: Yes Sensor Number: [id number] Sensor Location : Right Leg; Cord Clamp Vitamin K Given : Not Given Erythromycin Given: Not Given WEIGHT/LENGTH BABY A Birthweight (gm): 3380 Infant Weight (lb): 7 Infant Weight (oz): 7 Infant Length (in): 20.00 Length (cm): 50.80 CORD INFORMATION BABY A No. Cord Vessels: 3 Nuchal Cord : Around Neck x1, Loose Cord Blood Taken: Yes Suction: Mouth; Nose ASSESSMENT BABY A Complications: Meconium Physical Findings at Delivery: Within Normal Limits Respirations: Appears Normal Pelt Dropper/ALS Called : No Care By: ELLEN Transferred To: Remains with Mother
== END 2018-07-13 15:00 | disposition home or self-care (01) | DRG 807 ==
LOC: OBT 22:16 → L-D 22:17 → OBT 23:20 → L-D 07-11 01:04 → PP1 07-11 05:28
PROVIDERS: ADMIT Obstetrics & Gynecology; ATTEND Obstetrics & Gynecology
PROC: 10E0XZZ Delivery of Products of Conception, External Approach (ICD-10-PCS; principal; 2018-07-11)
PROC: 0HQ9XZZ Repair Perineum Skin, External Approach (ICD-10-PCS; 2018-07-11)
DX: O48.0 Post-term pregnancy (principal); O69.81X0 Labor and delivery complicated by cord around neck, without compression, not applicable or unspecified; O70.0 First degree perineal laceration during delivery; Z37.0 Single live birth; Z3A.40 40 weeks gestation of pregnancy
CPT/HCPCS: 62322; 76815; 76818; 85025; 85610; 85730; 86592; 86850; 86900; 86901; 87340; 99464; G0463; J0290; J2210; J2590; J3010; J7120